=== PATIENT | male | born 1965 | race Caucasian/White ===

== ENCOUNTER → 2020-11-20 | Outpatient (CLI) | payer BC | LOC: HEART 5 10:00 | DX: R07.9 Chest pain, unspecified (principal); I11.9 Hypertensive heart disease without heart failure; I27.20 Pulmonary hypertension, unspecified; I08.8 Other rheumatic multiple valve diseases | CPT/HCPCS: 93306 ==

== ENCOUNTER → 2020-11-20 | Outpatient (CLI) | payer BC | LOC: KOH-I 10:00 | DX: R07.9 Chest pain, unspecified (principal); M19.011 Primary osteoarthritis, right shoulder; I27.20 Pulmonary hypertension, unspecified; I08.8 Other rheumatic multiple valve diseases; I11.9 Hypertensive heart disease without heart failure | CPT/HCPCS: 73030; 93306 ==